=== PATIENT | male | born 1965 | race Caucasian/White ===

== ENCOUNTER 2020-03-23 09:29 | Day surgery (SDC) | payer OTHER ==
[~2020-03-23 09:29] MED LIST: HYOSCYAMINE0.125 M1 SL; INTESTINEX1 CA1 PO; OXYC1TAB9 PO
== END 2020-03-23 15:40 | disposition home or self-care (01) ==
LOC: AMB-ENDOS 09:29 → CIR.AMB 13:00 → AMB-ENDOS 15:40
PROVIDERS: ATTEND Surgery
DX: K62.89 Other specified diseases of anus and rectum (principal); Z20.828 Contact with and (suspected) exposure to other viral communicable diseases; K64.8 Other hemorrhoids